=== PATIENT | female | born 1965 | race Caucasian/White ===

== ENCOUNTER 2019-01-20 10:03 | Day surgery (SDC) | payer OTHER ==
[~2019-01-20] VITALS: Ht 160 cm; Wt 54.4 kg
[2019-01-20] MEDS ORDERED: fentaNYL 0.05 MG/ML VIAL ONE (11:48)
[2019-01-20] MEDS ORDERED: MIDAZOLAM 2 MG/2 ML VIAL ONE (11:48)
[2019-01-20] MEDS ORDERED: LIDOCAINE 2% 100 MG/5 ML UJET TP ONE (11:48)
[2019-01-20] MEDS ORDERED: fentaNYL 0.05 MG/ML VIAL IVP ONE (13:00)
[2019-01-20] MEDS ORDERED: MIDAZOLAM 2 MG/2 ML VIAL IVP ONE (13:00)
== END 2019-01-20 13:02 | disposition home or self-care (01) ==
LOC: MMU 10:03 → MDS 10:03
PROVIDERS: ATTEND Internal Medicine Gastroenterology
DX: Z12.11 Encounter for screening for malignant neoplasm of colon (principal); K31.89 Other diseases of stomach and duodenum; Z90.721 Acquired absence of ovaries, unilateral; Z98.51 Tubal ligation status; Z98.890 Other specified postprocedural states
CPT/HCPCS: 36415; 43239; 45378; 81025; 86677; J2250; J3010